=== PATIENT | female | born 1960 | race Two or more races ===

== ENCOUNTER 2018-10-05 09:05 | Outpatient (CLI) | payer OTHER | END 2018-10-05 09:07 | disposition home or self-care (01) | LOC: SONOGRAMA 09:05 | DX: E04.1 Nontoxic single thyroid nodule (principal) ==

== ENCOUNTER 2023-01-24 10:21 | Outpatient (CLI) | payer OTHER | END 2023-01-24 10:23 | disposition home or self-care (01) | LOC: SONOGRAMA 10:21 | PROVIDERS: ATTEND Pathology Anatomic Pathology & Clinical Pathology | DX: D34 Benign neoplasm of thyroid gland (principal); E04.9 Nontoxic goiter, unspecified; E04.2 Nontoxic multinodular goiter ==